=== PATIENT | male | born 1995 | race Caucasian/White ===

== ENCOUNTER 2017-01-02 17:19 | Emergency (ER) | payer BC ==
[2017-01-02 17:49] VITALS: BP 137/74
--- NOTE | 2017-01-02 18:05 | UC ---
Throat Pain/Nasal Otoniel HPI - HPI Summary HPI Summary: Pt presents with ST and headache for the last 2 days. He tells me that he has a history strep throat with significant tonsillitis. Today he complains of a sore throat and pain with swallowing. He is able to eat, drink, and breathe without difficulty. He has not tried anything OTC. He denies fever, chills, sinus congestion, SOB, chest pain, or N/V/D/C. - History of Current Complaint Chief Complaint: UCRespiratory Stated Complaint: THROAT PAIN Time Seen by Provider: 01/02/17 18:04 Hx Obtained From: Patient Onset/Duration: Gradual Onset Severity: Moderate Pain Intensity: 6 Pain Scale Used: 0-10 Numeric - Allergies/Home Medications Allergies/Adverse Reactions: Allergies Allergy/AdvReac Type Severity Reaction Status Date / Time No Known Allergies Allergy Verified 01/02/17 17:49 Home Medications: Home Medications Dextromethorphan-Phenylephrine [Vicks Dayquil Cold & Flu 10-5-325 mg/15Ml] 1 liq PO PRN 01/02/17 [History] PMH/Surg Hx/FS Hx/Imm Hx Previously Healthy: Yes - Surgical History Surgical History: None - Social History Occupation: Student Lives: Dormitory/Roommates Alcohol Use: Occasionally Substance Use Type: None Smoking Status (MU): Never Smoked Tobacco Review of Systems Constitutional: Negative Skin: Negative Eyes: Negative ENT: Sore Throat Respiratory: Negative Cardiovascular: Negative Gastrointestinal: Negative All Other Systems Reviewed And Are Negative: Yes Physical Exam Triage Information Reviewed: Yes Appearance: Well-Nourished, Ill-Appearing Vital Signs: Initial Vital Signs Temp 101.3 F 01/02/17 17:47 Pulse 113 01/02/17 17:47 Resp 18 01/02/17 17:47 BP 137/74 01/02/17 17:47 Pulse Ox 100 01/02/17 17:47 Vital Signs Reviewed: Yes Eyes: Positive: Conjunctiva Clear ENT: Positive: Hearing grossly normal, Pharyngeal erythema, TMs normal, Tonsillar swelling - 3+, Muffled voice, Uvula midline. Negative: Nasal congestion, Nasal drainage, TM bulging, TM dull, TM red, Tonsillar exudate, Sinus tenderness Neck: Positive: Supple, Nontender, No Lymphadenopathy Respiratory: Positive: Chest non-tender, Lungs clear, Normal breath sounds, No respiratory distress, No accessory muscle use Cardiovascular: Positive: RRR, No Murmur, Pulses Normal Skin: Negative: rashes Throat Pain/Nasal Course/Dx - Course Course Of Treatment: POC strep positive in office. Decadron 4mg given today. Rx for amoxicillin for 10 days and 40mg prednisone for 5 days - Differential Dx/Diagnosis Differential Diagnosis/HQI/PQRI: Epiglottitis, Peritonsillar Abscess, Pharyngitis, Tonsillitis, URI Provider Diagnoses: Strep pharyngitis Discharge - Discharge Plan Condition: Stable Disposition: HOME Prescriptions: Amoxicillin PO (*) [Amoxicillin 500 MG CAP*] 500 mg PO Q12H #20 cap Prednisone 40 mg PO DAILY #10 tab Patient Education Materials: Strep Throat (ED) Forms: *School Release Referrals: No Primary Care Phys,NOPCP [Primary Care Provider] - Additional Instructions: 1) If you develop fever, chills, difficulty eating/drinking/breathing, new or worsening symptoms - please go to the ED. Your blood pressure was high at todays visit. Please see your primary provider within 4 weeks for recheck and re-evaluation.
[2017-01-02] MEDS ORDERED: Dexamethasone TAB* 4 MG PO ONE (18:09)
== END 2017-01-02 18:50 | disposition home or self-care (01) ==
LOC: UCEAST 17:19
DX: J02.0 Streptococcal pharyngitis (principal)
CPT/HCPCS: 87651; 99212; G0463; J8540